=== PATIENT | female | born 1935 | race African-American/Black ===

== ENCOUNTER → 2018-02-08 | Outpatient (CLI) | payer MEDICARE, OTHER ==
[~2018-02-08] MED LIST: ABILIFY5 MG PO; ASPIR 8181 MG PO; LOSARTAN-HCTZ1 EAC1 PO; NORCO 5-325 TA1 EACH PO; PIOGLITAZONE HC30 MG PO; SIMVASTATIN40 MG PO; SYNTHROID88 MCG PO; VERAPAMIL ER240 MG PO
--- NOTE | 2018-02-08 14:01 | Diagnostic Imaging Report ---
PROCEDURE:X-RAY UPPER GI SERIES WITH AIR CONTRAST COMPARISON:None. INDICATIONS:Left lower quadrant hematoma, reflux TECHNIQUE: Patient was allowed to drink thick and thin barium. Effervescent crystals were not administered. FINDINGS: Limited mobility renders this study less than optimal. There is a hiatal hernia present. Reflux during fluoroscopy is noted. The stomach was distended with air prior to the examination. Lack of optimal coating of the stomach due to the presence of air prior to administration of the barium. No obstruction is identified. Duodenal bulb is normal. Fluoroscopy time: 1.8 minutes Total Dose: 50 mGy CONCLUSION: Limited study with a hiatal hernia and reflux noted. Drew Blanca D.O. Dictated by: Drew Blanca D.O. on 02/08/2018 at 14:11 Electronically approved by: Drew Blanca D.O. on 02/08/2018 at 14:11
== END ==
LOC: DX 10:12
PROVIDERS: ATTEND Internal Medicine
DX: S30.1XXA Contusion of abdominal wall, initial encounter (principal); K44.9 Diaphragmatic hernia without obstruction or gangrene; K21.9 Gastro-esophageal reflux disease without esophagitis
CPT/HCPCS: 74246